=== PATIENT | male | born 1965 | race African-American/Black ===

== ENCOUNTER 2018-03-14 15:11 | Inpatient (IN) | payer MEDICAID ==
[~2018-03-14] VITALS: Ht 170.2 cm; Wt 107.6 kg
[2018-03-14 15:31] VITALS: Ht 170.2 cm; Wt 107.6 kg
[2018-03-14 16:00] LABS: microscopic required? NO
[2018-03-14 16:13] LABS: PLATELET COUNT 264 x10^3mcL (130-400); RED CELL DISTRIBUTION WIDTH 13.3 % (11.5-14.5)
[2018-03-14 16:20] LABS: UA SPECIFIC GRAVITY <=1.005 (1.005-1.035); urine erythrocyte NEGATIVE (NEGATIVE)
[2018-03-14 16:43] LABS: ALBUMIN 4.2 g/dL (3.4-5.0); CALCIUM 9.3 mg/dL (8.5-10.1); CARBON DIOXIDE 18.9 mmol/L (21-32); CREATININE SERUM 1.5 mg/dL (0.7-1.3); POTASSIUM SERUM 4.8 mmol/L (3.5-5.1)
[2018-03-14 16:45] LABS: TOTAL PROTEIN, SERUM 8.6 g/dL (6.4-8.2)
[2018-03-14 16:59] LABS: BASOPHIL % 2.6 % (0-2)
[2018-03-14 18:20] LABS: AMPHETAMINE QUAL UR NONE DETECTED (See below)
[2018-03-14 18:31] LABS: FREE T4 1.08 ng/dL (0.76-1.46); FREE THYROXINE INDEX 2.9 ug/dL (1.4-4.5); T4(THYROXINE) 7.5 ug/dL (4.7-13.3)
[2018-03-14 18:34] LABS: CARBON DIOXIDE 23.1 mmol/L (21-32); CHLORIDE SERUM 99 mmol/L (98-107); CREATININE SERUM 1.3 mg/dL (0.7-1.3); GFR1 > 60 mL/min; GLUCOSE SERUM 372 mg/dL (74-106); POTASSIUM SERUM 3.7 mmol/L (3.5-5.1); SODIUM SERUM 132 mmol/L (136-145)
[2018-03-14 18:39] LABS: T3 TOTAL 0.71 ng/mL
[2018-03-14 18:56] LABS: CHOLESTEROL/HDL RATIO 6.4; MAGNESIUM 2.4 mg/dL (1.8-2.4)
[2018-03-14 19:54] VITALS: BP 119/82
[2018-03-14 22:31] LABS: CALCIUM 8.2 mg/dL (8.5-10.1); CARBON DIOXIDE 22.5 mmol/L (21-32); CHLORIDE SERUM 99 mmol/L (98-107); GFR1 > 60 mL/min; GLUCOSE SERUM 346 mg/dL (74-106); POTASSIUM SERUM 3.8 mmol/L (3.5-5.1); SODIUM SERUM 134 mmol/L (136-145)
[2018-03-15 02:43] LABS: CALCIUM 8.7 mg/dL (8.5-10.1); CARBON DIOXIDE 21.5 mmol/L (21-32); CHLORIDE SERUM 98 mmol/L (98-107); GFR1 > 60 mL/min; GLUCOSE SERUM 418 mg/dL (74-106); SODIUM SERUM 129 mmol/L (136-145)
[2018-03-15 05:38] VITALS: BP 119/79
[2018-03-15 07:41] LABS: BASOPHIL % 0.4 % (0-2); PLATELET COUNT 220 x10^3mcL (130-400); RED CELL DISTRIBUTION WIDTH 13.3 % (11.5-14.5)
[2018-03-15 07:58] LABS: CALCIUM 8.9 mg/dL (8.5-10.1); CARBON DIOXIDE 20.8 mmol/L (21-32); CHLORIDE SERUM 101 mmol/L (98-107); GFR1 > 60 mL/min; GLUCOSE SERUM 319 mg/dL (74-106); POTASSIUM SERUM 3.7 mmol/L (3.5-5.1); SODIUM SERUM 133 mmol/L (136-145)
[2018-03-15 09:50] VITALS: BP 132/86
[2018-03-15 13:16] VITALS: BP 116/77
[2018-03-15 17:54] VITALS: BP 126/80
[2018-03-15 20:47] VITALS: BP 119/65
[2018-03-16 05:15] VITALS: BP 119/73
[2018-03-16 06:09] LABS: BASOPHIL % 0.6 % (0-2); PLATELET COUNT 197 x10^3mcL (130-400); RED CELL DISTRIBUTION WIDTH 13.6 % (11.5-14.5)
[2018-03-16 06:28] LABS: ALKALINE PHOSPHATASE 93 U/L (46-116); ALT/SGPT 62 U/L (16-63); AST/SGOT 34 U/L (15-37); BILIRUBIN TOTAL 0.45 mg/dL (0.20-1.00); CALCIUM 8.2 mg/dL (8.5-10.1); CARBON DIOXIDE 23.5 mmol/L (21-32); CHLORIDE SERUM 105 mmol/L (98-107); CREATININE SERUM 0.9 mg/dL (0.7-1.3); GFR1 > 60 mL/min; GLUCOSE SERUM 280 mg/dL (74-106); PHOSPHOROUS 3.1 mg/dL (2.5-4.9); POTASSIUM SERUM 3.4 mmol/L (3.5-5.1); SODIUM SERUM 136 mmol/L (136-145); TOTAL PROTEIN, SERUM 6.2 g/dL (6.4-8.2)
[2018-03-16] MEDS ORDERED: METFORMIN HCL1000 MG PO (08:28)
[2018-03-16] MEDS ORDERED: LAC PO (08:29)
[2018-03-16 09:30] VITALS: BP 127/74
== END 2018-03-16 13:31 | disposition home or self-care (01) | DRG 420 ==
LOC: ED 15:11 → DU 17:33
PROVIDERS: Emergency Medicine; Internal Medicine
DX: E11.65 Type 2 diabetes mellitus with hyperglycemia (principal); N17.0 Acute kidney failure with tubular necrosis; E83.39 Other disorders of phosphorus metabolism; D68.59 Other primary thrombophilia; E44.1 Mild protein-calorie malnutrition; E87.1 Hypo-osmolality and hyponatremia; E78.5 Hyperlipidemia, unspecified; F15.11 Other stimulant abuse, in remission; Z68.35 Body mass index [BMI] 35.0-35.9, adult; Z83.3 Family history of diabetes mellitus; Z82.3 Family history of stroke; Z82.49 Family history of ischemic heart disease and other diseases of the circulatory system
CPT/HCPCS: 36600; 83880; 84439; G0480; J1815; J7030; Q0092

== ENCOUNTER 2019-02-09 17:27 | Emergency (ER) | payer OTHER ==
[~2019-02-09] VITALS: Ht 167.6 cm; Wt 108.4 kg
[~2019-02-09 17:27] MED LIST: LAC PO; METFORMIN HCL1000 MG PO
[2019-02-09 17:59] VITALS: Ht 167.6 cm; Wt 108.4 kg
[2019-02-09 20:59] VITALS: BP 118/58
== END 2019-02-09 20:59 | disposition home or self-care (01) ==
LOC: ED 17:27
DX: M79.662 Pain in left lower leg (principal); R51 Headache; I10 Essential (primary) hypertension; E11.9 Type 2 diabetes mellitus without complications
CPT/HCPCS: 82962; Q0092

== ENCOUNTER 2020-02-13 22:56 | Emergency (ER) | payer OTHER ==
[~2020-02-13] VITALS: Ht 170.2 cm; Wt 111.6 kg
[2020-02-13 23:07] VITALS: Ht 170.2 cm; Wt 111.6 kg
[2020-02-14 00:03] LABS: BASOPHIL % 1.4 % (0-2); PLATELET COUNT 254 x10^3mcL (130-400)
[2020-02-14 00:11] LABS: CARBON DIOXIDE 27.4 mmol/L (21-32); CHLORIDE SERUM 99 mmol/L (98-107); CREATININE SERUM 1.2 mg/dL (0.7-1.3); GFR1 > 60 mL/min; GLUCOSE SERUM 343 mg/dL (74-106); POTASSIUM SERUM 4.2 mmol/L (3.5-5.1); SODIUM SERUM 135 mmol/L (136-145)
[2020-02-14 00:16] LABS: ALBUMIN 3.8 g/dL (3.4-5.0); ALKALINE PHOSPHATASE 138 U/L (46-116); ALT/SGPT 81 U/L (16-63); AST/SGOT 35 U/L (15-37); BILIRUBIN TOTAL 0.4 mg/dL (0.20-1.00); TOTAL PROTEIN, SERUM 7.7 g/dL (6.4-8.2)
[2020-02-14 01:09] VITALS: BP 114/74
== END 2020-02-14 01:09 | disposition home or self-care (01) ==
LOC: ED 22:56
PROVIDERS: Emergency Medicine
DX: E11.65 Type 2 diabetes mellitus with hyperglycemia (principal)
CPT/HCPCS: 36415; 82962; J1815